=== PATIENT | male | born 1950 | race Caucasian/White ===

== ENCOUNTER 2016-08-15 07:24 | Day surgery (SDC) | payer OTHER ==
--- NOTE | ~2016-08-15 | OP ---
Record Of Operation [facility] [place] [address] [place]. [address] NAME: AL HUANG : 52 STATUS : [facility]#: [id number] AGE: 66 ADM/REG DATE : 08/15/16 MR#: [id number] REPORT SERV DATE: 09/01/16 DICTATED BY: EMILIA RODRÍGUEZ DATE: 09/01/16 REPORT STATUS : Draft TRANSCRIBED BY: MODL DATE: 09/01/16 DATE OF PROCEDURE: PROCEDURE PERFORMED: Fiberoptic bronchoscopy, bronchoscopy with airway inspection. Bronchoscopy through the tracheostomy and change of tracheostomy tube. INDICATION: For persistent abnormal symptoms following a recent tracheostomy change. DESCRIPTION OF PROCEDURE: The patient received conscious sedation under the care of Anesthesiology. The bronchoscope was inserted nasally and the upper airway was inspected and then we switched his tracheostomy tube and performed an inspection of the lower respiratory tract. The original tracheostomy tube was in good position and the upper airway was normal with only mild granulation tissue above the tracheostomy site. The lower respiratory tract was within normal limits with some changes of chronic bronchitis and hyperemia, but no endobronchial lesions, and no mucopurulent secretions. IMPRESSION: Chronic respiratory failure and chronic tracheostomy with tracheostomy in good position. LAUREN/VONDA Emilia Rodríguez M.D. / [id number] CC: Farrah Clark M.D.
[~2016-08-15 07:24] MED LIST: AMARYL1 MG PO; ASABAYER PO; BETAPACE80 PO; BREO ELLIPTA INH; BUM1 PEG; C1 PO; COREG12 PEG; COUMADIN3 MG PO; COZ50 PO; CRESTOR PO; CRESTOR5 MG PEG; DUONEB INH; FLOMAX4 PEG; GLUCPH PEG; KCL20UDL PEG; L40 PO; LANTUS SC; LANTUSCART SC; LOFIBRA134 MG PO; MONOKET20 PEG; NEUR100 PEG; NEXIUM20 M1 PEG; NORV10 PEG; NOVOLOG SC; P5 PEG; PLAVIX PEG; SPIRO25 PO; TRAZ50 PEG; ZESTRIL30 MG PEG; ZETIA PO; ZOL50 PEG; [UNRECOGNIZED DRUG - OTHER] PO
[2016-08-15 08:18] LABS: ALBUMIN 3.2 G/DL (3.5-5.0); BUN (BLOOD UREA NITROGEN) 26 MG/DL (6-23); CALCIUM, SERUM 9.2 MG/DL (8.5-10.4); CHLORIDE, SERUM 103 MMOL/L (96-112); CO2 (CARBON DIOXIDE) 34 MMOL/L (24-34); GLUCOSE, SERUM 118 MG/DL (60-99); POTASSIUM, SERUM 3.5 MMOL/L (3.5-5.3); SODIUM, SERUM 145 MMOL/L (135-148)
[2016-08-15 08:29] LABS: ALKALINE PHOSPHATASE 85 U/L (45-117); CREATININE 1.02 MG/DL (0.70-1.30); DIRECT BILIRUBIN 0.1 MG/DL (0.0-0.4); GFR AFRICAN AMERICAN 89 ML/MIN (>=60); GFR NON AFRICAN AMERICAN 77 ML/MIN (>=60); INDIRECT BILIRUBIN(NOT ORDER) 0.3 MG/DL (0.1-0.9); SGOT(AST) 18 U/L (5-40); SGPT(ALT) 21 U/L (5-65); TOTAL BILIRUBIN 0.4 MG/DL (0-1.2)
== END 2016-08-15 23:59 | disposition home or self-care (01) ==
LOC: DMU 07:24
PROVIDERS: Anesthesiology; Internal Medicine Pulmonary Disease
PROC: 0B21XFZ Change Tracheostomy Device in Trachea, External Approach (ICD-10-PCS; 2016-08-15)
PROC: 0BJ08ZZ Inspection of Tracheobronchial Tree, Via Natural or Artificial Opening Endoscopic (ICD-10-PCS; principal; 2016-08-15 08:00)
DX: Z46.89 Encounter for fitting and adjustment of other specified devices (principal); F32.9 Major depressive disorder, single episode, unspecified; R32 Unspecified urinary incontinence; E78.00 Pure hypercholesterolemia, unspecified; J45.909 Unspecified asthma, uncomplicated; J44.9 Chronic obstructive pulmonary disease, unspecified; I50.9 Heart failure, unspecified; R16.0 Hepatomegaly, not elsewhere classified; E11.22 Type 2 diabetes mellitus with diabetic chronic kidney disease; I13.2 Hypertensive heart and chronic kidney disease with heart failure and with stage 5 chronic kidney disease, or end stage renal disease; N18.6 End stage renal disease; G81.94 Hemiplegia, unspecified affecting left nondominant side; Z90.49 Acquired absence of other specified parts of digestive tract; Z98.890 Other specified postprocedural states; Z95.2 Presence of prosthetic heart valve; Z93.0 Tracheostomy status; Z86.73 Personal history of transient ischemic attack (TIA), and cerebral infarction without residual deficits; Z88.5 Allergy status to narcotic agent; Z98.42 Cataract extraction status, left eye; Z98.41 Cataract extraction status, right eye; Z96.1 Presence of intraocular lens; Z87.01 Personal history of pneumonia (recurrent); Z87.891 Personal history of nicotine dependence; Z85.820 Personal history of malignant melanoma of skin; Z79.899 Other long term (current) drug therapy; Z79.4 Long term (current) use of insulin; Z79.84 Long term (current) use of oral hypoglycemic drugs; Z79.52 Long term (current) use of systemic steroids; Z79.51 Long term (current) use of inhaled steroids
CPT/HCPCS: 80048; 80076; 93005